=== PATIENT | male | born 1945 | race Caucasian/White ===

== ENCOUNTER 2021-05-20 13:25 | Outpatient (CLI) | payer MEDICARE, BC, SELFPAY ==
--- NOTE | 2021-05-20 11:15 | DI.RAD_ITS ---
Exam(s) XR KNEE RT 3V AP,LAT,KVNG EXAM: XR KNEE RT 3V AP,LAT,KVNG CLINICAL HISTORY: right knee pain. TECHNIQUE: 2D digital imaging was performed. COMPARISON: No exams were available for comparison FINDINGS: No evidence of acute fracture but there does appear to be a joint effusion. There is [id number] narrowing of the medial compartment evident on the weight-bearing view. Also m arginal osteophytes. Moderate degenerative changes are noted in the other 2 compartments. Vascular calcification also noted. IMPRESSION: Degenerative changes, most prominent in the medial compartment. Joint effusion DATA REPOSITORY: RADIATION DOSE DELIVERED:
== END 2021-05-20 13:26 | disposition home or self-care (01) ==
LOC: DIORS 13:25
PROVIDERS: PCP Internal Medicine; Referring Provider Internal Medicine; Visit Provider Student in an Organized Health Care Education/Training Program
DX: M25.561 Pain in right knee (principal); M25.461 Effusion, right knee; M17.11 Unilateral primary osteoarthritis, right knee
CPT/HCPCS: 73562; 99202

== ENCOUNTER 2023-03-23 12:06 | Outpatient (CLI) | payer MEDICARE, BC, SELFPAY ==
--- NOTE | 2023-03-23 12:02 | DI.RAD_ITS ---
Exam(s) XR STANDING ALIGNMENT EXAM: XR STANDING ALIGNMENT CLINICAL HISTORY: eval R knee alignment, pre TKA. TECHNIQUE: 2D digital imaging was performed. Four images were obtained. COMPARISON: CR XR KNEE RT 3V AP,LAT,KVNG from 05/20/2021 FINDINGS: BONES: There are marked degenerative changes seen in the left hip and mild degenerative changes in th e right hip. Moderate degenerative changes are seen in the right knee characterized by joint space n arrowing and osteophytes particularly in the medial femoral tibial joint space. There are mild degen erative changes in the left knee particularly in the medial femoral tibial joint. The ankles are wel l maintained.There is no significant leg length discrepancy. SOFT TISSUE: Atherosclerosis. IMPRESSION: Osteoarthritis of the knees and hips as described above. DATA REPOSITORY: RADIATION DOSE DELIVERED:
== END 2023-03-23 12:07 | disposition home or self-care (01) ==
LOC: DIORS 12:07
PROVIDERS: Visit Provider Student in an Organized Health Care Education/Training Program
DX: M17.11 Unilateral primary osteoarthritis, right knee (principal); Z01.818 Encounter for other preprocedural examination
CPT/HCPCS: 77073

== ENCOUNTER 2023-04-01 01:25 | Outpatient (CLI) | payer MEDICARE, BC, SELFPAY ==
[2023-04-01 10:22] LABS: HCT 44.3 % (40.0-50.0); HGB 14.9 g/dL (13.5-17.5); MCH 30.4 pg (27.0-33.0); MCHC 33.6 % (32.0-36.0); MCV 90 fL (80-95); MPV 10.7 fL (8.0-11.0); Platelet Count 155 10^3/uL (130-400); RDW-SD 39.6 fL; WBC 6.67 10^3/uL (4.4-10.8)
[2023-04-01 10:43] LABS: Anion Gap 5.1 mmol/L (3-11); BUN 28 mg/dL (7-18); CO2 28.9 mmol/L (21.0-32.0); CREATININE 1.2 mg/dL (0.70-1.30); Calcium 9.4 mg/dL (8.5-10.1); Chloride 103 mmol/L (98-107); Glucose 103 mg/dL (74-106); Potassium 4.5 mmol/L (3.5-5.1); Sodium 137 mmol/L (136-145)
== END 2023-04-01 01:26 | disposition home or self-care (01) ==
LOC: LBO 01:25
PROVIDERS: Visit Provider Student in an Organized Health Care Education/Training Program
DX: M25.561 Pain in right knee (principal); M17.11 Unilateral primary osteoarthritis, right knee; Z01.818 Encounter for other preprocedural examination; Z01.812 Encounter for preprocedural laboratory examination
CPT/HCPCS: 36415; 80048; 85027

== ENCOUNTER 2023-04-14 07:07 | Day surgery (SDC) | payer MEDICARE, BC, SELFPAY ==
[2023-04-14] VITALS (11 sets, daily range): BP systolic 101–176; BP diastolic 66–94; PULSE 43–83; RESP 9–16; TEMP 36.3–36.6; O2SAT 96–99; BMI 25.5
[2023-04-14] MEDS: Lactated Ringers 1,000 ML 80 ML IV (07:55)
[2023-04-14] MEDS: Gabapentin 300 MG CAP PO (07:56)
[2023-04-14] MEDS: Acetaminophen 500 MG TAB 1000 MG PO (07:56)
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
--- NOTE | 2023-04-14 08:49 | PDOC.DSDIS_ITS ---
Date of service: 04/14/23 Time of Service: 10:14 Discharge Plan Disposition Patient Disposition: Home Condition: Good Discharge Details Reason For Visit: Right knee DJD Attending Provider: Steven Parker Primary Care Provider: [facility] Home Meds and New Rx's Prescriptions: New acetaminophen 500 mg tablet 1,000 mg PO Q8H PRN Qty: 90 0RF Rx Instructions: Take two tablets up to every 8 hours as needed for pain pantoprazole 40 mg tablet,delayed release (DR/EC) 40 mg PO DAILY Qty: 14 0RF dexamethasone 4 mg tablet 4 mg PO DAILY Qty: 2 0RF Rx Instructions: Take one tablet once daily for two days docusate sodium [Colace] 100 mg capsule 100 mg PO BID Qty: 30 0RF gabapentin 300 mg capsule 300 mg PO QHS Qty: 14 0RF Rx Instructions: Take one tablet at bedtime oxycodone 5 mg tablet 5 mg PO Q4H PRNQty: 18 0RF Rx Instructions: Take one tablet up to every 4 hours as needed for severe postoperative pain meloxicam 15 mg tablet 15 mg PO DAILY Qty: 60 1RF Rx Instructions: Take one tablet daily for pain and inflammation Continued dofetilide 125 mcg capsule 500 mcg PO Q12H apixaban 5 mg tablet 5 mg PO BID lisinopril 5 MG tablet 5 mg PO DAILY metoprolol succinate 25 mg tablet extended release 24 hr 25 mg PO DAILY rosuvastatin [Crestor] 5 mg tablet 5 mg PO DAILY tamsulosin [Flomax] 0.4 mg capsule 0.8 mg PO DAILY Discharge Instructions Additional Instructions: Total Knee Discharge Instructions Activity: The most important activity is to walk and to work on gentle motion (both flexion and extension). You should try to take short walks a few times a day. It is important that when resting you work on keeping the knee straight. Avoid putting a pillow behind the knee as this will encourage flexion. Work on range of motion exercises as provided by Physical Therapy. - Start outpatient physical therapy within 2 weeks. - You should wear the NIKOS hose on both legs for 2 weeks. You may remove these at night. You may also use any compression sock in place of the NIKOS hose. - Utilize [employer] to review exercises, see videos on exercises and obtain basic information pertaining to your surgery and your recovery. Dressing: Remove the Josr wrap by 2 days after your surgery and put on the NIKOS stocking given to you from the hospital. Keep the surgical dressing (underneath the JOSR wrap) in place for at least one week. After the first week it may be removed and replaced with light gauze and tape or nothing. The wound and dressing may get wet after 3 days but avoid soaking the dressing or otherwise it will need to be changed. Many people prefer covering the dressing with cling wrap (saran wrap) to minimize it from getting soaked. If it gets wet, just pat dry. If it starts to peel off then it will need to be changed. Medications: - You should take Tylenol and anti-inflammatory Meloxicam as your primary pain control medications. If the Meloxicam is too expensive or not covered, please call the office for another alternative (Naproxen/Aleve) - You have been prescribed a stronger pain medication Oxycodone for breakthrough pain, take as needed as prescribed. - You have also been prescribed a stomach acid reduction agent Pantoprozole to help reduce stomach acid and reflux. - You have been prescribed Gabapentin to take at night for restlessness and nerve pain. - You will resume your baseline anticoagulation of Apixaban starting tomorrow. - You have also been prescribed Decadron to take to control post-operative nausea and pain. You will start this tomorrow. - If you have constipation you should take Colace (which has been prescribed) or Miralax (which is available [id number]). It takes most people 3-4 days to have a bowel movement. Follow-up: 2 weeks If you have any acute concerns or questions, please do not hesitate to contact the office at [phone]. You may contact Dr. Parker with any questions after hours through the hospital at [phone] or on his cell phone at [phone]. Referrals: Steven Parker MD [ [facility] STAFF PHYSICIAN] - Equipment/Supplies: Walker Activity:: Elevate Remove Dressings/Wound Care:: Do Not Remove Shower/Bathe:: 72 hours and Cover Diet:: As Tolerated Discharge Orders Discharge Orders: Discharge Order (Routine); Ordered 04/14/23 Ordered By: Brandi Mcmahan DS: Diagnosis Discharge Diagnosis (1) Osteoarthritis of right knee: Status: Chronic
[2023-04-14] MEDS: ceFAZolin 2 GM/50 ML BAG IVPB (09:11)
--- NOTE | 2023-04-14 11:56 | W.ANESNERVE ---
Nerve Block Single Injection Procedure Date and Time Date Performed: 04/14/23 Procedure Start: 07:50 Location Where Procedure Performed Procedure Location: Day Surgery Unit Reason Performed: Postoperative Analgesia Requesting Provider: Steven Parker Timeout Performed Timeout Performed: Yes Monitoring Used ECG, Blood Pressure, SpO2 and See EMR for corresponding vital signs Sterility Sterility: Hand Hygiene, Surgical Cap, Surgical Mask, Sterile Gloves and Chlorhexidine Sedation Given During Procedure Sedation Given (Indicate Dose Given): No Sedation given Patient Mental Status Patient Mental Status: Awake Nerve Block 1st Nerve Block: Laterality: Right Block Type: Adductor Canal Ultrasound Image Saved?: Yes Needle / Catheter Used: 100mm SonoPlex II Local Anesthetic Bolus (Indicate Dose Given): Lidocaine used for local infiltration of skin, Injected in 3-5ml increments after negative blood aspiration and Bupivacaine 0.25% Dose:: 15 ml Additives (Indicate Dose Given): None Ultrasound: Sterile probe cover and gel used Nerve Stimulator: Not Used Paresthesia: None Procedure Tolerated: No Complications Procedure Outcome: Successful Performed By: Lanie Tinoco
--- NOTE | 2023-04-14 13:20 | W.ANESPOSTOP ---
Postoperative Evaluation Date, Time and Location Date Performed: 04/14/23 Time Performed: 13:20 Patient Location: Day Surgery Unit Vital Signs Most Recent Imported Vital Signs: Most Recent Vital Signs Temp Pulse Resp BP Pulse Ox 36.5 C 43 L 10 L 116/94 H 99 04/14/23 11:31 04/14/23 11:31 04/14/23 11:31 04/14/23 11:31 04/14/23 11:31 Pain Score Most Recent Pain Score: Most Recent Pain Score Pain Level 0 04/14/23 11:31 Assessment Mental Status: Awake (Alert & Oriented to Patient Baseline) Airway and Respiratory Function: Patent airway with normal (patient baseline) respiratory exam Cardiovascular Function: Hemodynamically Stable Hydration Status: Adequately Hydrated Nausea & Vomiting: No Nausea or Vomiting Pain: Pt. Denies Any Pain Peripheral Nerve Block: Regional nerve block not resolved at time of post operative discharge
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
--- NOTE | 2023-04-14 14:22 | W.PM.OP ---
Date of service: 04/14/23 Time of Service: 09:20 Operative Note Operative Note DATE OF PROCEDURE: 04/14/23 PRE-OP DIAGNOSIS: Right Knee Osteoarthritis POST-OP DIAGNOSIS: same PROCEDURE: Right Total Knee Replacement SURGEON: Steven Parker MATERIALS HANDLING COORDINATOR: Brandi Mcmahan ANESTHESIA TYPE: Spinal Refer to Anesthesia Record ESTIMATED BLOOD LOSS: 150 PATHOLOGY: none sent TOURNIQUET TIME: 0 COMPLICATIONS: None Patient was transported to: PACU Patient's condition: stable Implants: 1. Depuy Attune Cementless Cruciate Retaining Femoral Component, Size 8 2. Depuy Attune Cementless Fixed Bearing Tibial Component, Size 7 3. Depuy Attune 8x8 CR/FB Poly 4. Depuy Attune Patellar Component, Size 38 Indications: I have seen Christopher in clinic for symptoms of knee arthritis, confirmed with radiographic findings. He has exhausted nonoperative methods and was having significant limitations in daily function and desired better function and less pain. I discussed the technical details of a knee replacement. I explained the risks of the procedure to include, but not limited to, bleeding, infection, pain, stiffness, fracture, damage to nerves and vessels, damage to muscles and tendons, loosening, need for repeat procedure, blood clot and cardiopulmonary demise. Despite these risks, Christopher elected to proceed. Findings: There was significant signs of arthritis throughout the knee. Procedure Description: Christopher was greeted in the preoperative holding area where the correct side was identified and marked. The consent was reviewed with the patient and signed. The history and physical was updated. All questions were answered. Preoperative medications were administered: Acetaminophen 1000mg, Celebrex 400mg, and Gabapentin 300mg. An adductor canal block was then administered by the anesthesia team in the [facility]. Christopher was taken back to the operating room. A spinal anesthestic was then administered. The patient was placed into the supine position on the operating room table. A nonsterile tourniquet was placed high onto the leg but only used for cementing. Posts were placed for positioning during the procedure. All bony prominences were well padded. Prophylactic antibiotics in the form of Cefazolin were administered. 1g of Tranxemic Acid was given intravenously within 30 minutes of incision. The right leg was then prepped with Chloraprep and draped in a standard fashion with impervious stockinette. A second prep with Chloraprep was performed prior to application of Iodine impregnated skin protection. A timeout to confirm correct identity, side and site, procedure, allergies, anesthesia, and medical concerns was performed. With the knee in some flexion, a midline incision was made overlying the knee. Full thickness skin flaps were raised once the extensor mechanism was encountered. These were raised medially and laterally. Any bleeding was controlled with electrocautery. Once the extensor mechanism was fully exposed, a medial parapatellar arthrotomy was performed in a flexed position. All bleeding from the arthrotomy and the geniculate arteries was coagulated. A medial subperiosteal peel was performed with electrocautery to the midcoronal plane. Due to the significant varus deformity the entire medial tibial plateau was exposed. The fat pad was removed while keeping the patellar tendon protected. The anterior distal femur synovium was removed for later visualization. The ACL and PCL were resected and the anterior horn of the lateral meniscus was transected. The knee was then flexed with the patella everted. Large osteophytes from the tibia were removed. Large osteophytes from the femur were removed. Using a step drill, and based on preoperative templating, the femoral canal was entered. This was done with a step drill without any difficulty. The intramedullary distal femoral cut guide was inserted, set to a 6 degree valgus cut and 9mm cut thickness. The distal femoral cut guide was then held in position and pinned. With the soft tissues protected, the distal cut was performed. This was passed over a few times to ensure a planar cut. I then turned attention to the tibia. The extramedullary guide was placed onto the leg. The distal aspect was slid medial to adjust for position of center of ankle and stay in line with shaft of the tibia. Approximately 5 degrees of posterior slope was kept in the proximal cutting guide. The center of the guide was aligned with the PCL. The stylus was used to assess cut thickness. The medial side, most involved side, was set for a 4mm cut. This was then held in position and pinned into place with 2 additional pins and a cross pin for stability. The medial and lateral collateral ligaments were protected and the cut was performed. With this completed, it was assessed and noted to be of appropriate dimensions. The guide was removed. A spacer block was inserted and the knee was brought into extension. The 6mm spacer block provided full extension, without hyperextension and with stability of both the medial and lateral collateral ligaments was assessed. The pins from the femur and the tibia were then removed. The distal femur was then sized. The anterior stylus was placed onto the lateral ridge of the anterior femur. This indicated a size 8 femur. The external rotation of the guide was adjusted to 3 degrees to match the epicondylar axis, perpendicular to Parag?s line. The 4-in-1 cutting guide was the placed. The posterior medial femur cut was evaluated and appeared of good thickness. The spacer block was inserted underneath the cutting guide and stability was confirmed in 90 degrees of flexion. An renate wing was used to confirm appropriate position of the anterior cut to avoid notching. This cutting guide was ensured to be flush on the cut surface and then pinned into place with headed pins. While protecting the soft tissues, quad tendon, and collateral ligaments, the anterior and posterior cuts were performed with a saw. The central two pins were removed and the posterior and anterior chamfers were cut next. The notch-cutting guide was placed. This was pinned to lateralize the femoral component as much as possible while keeping it flush on the cut surface. This was then pinned into position. A reciprocating saw was used to make the notch cut. A rasp smoothed the cut surfaces. The medial and lateral menisci were removed. A trial femoral component was then inserted, impacted down to the cut surfaces, and the lug holes were drilled. A provisional trial tibial component was placed and the knee was brought through range of motion. There was noted to be excellent extension and flexion. There was no significant instability. The patella was tracking without thumbs. A size 8mm polyethylene component provided the best range of motion and stability with less than 2mm gapping with medial and lateral stress and full extension without significant hyperextension. The tibial cut surface was fully exposed. The tibia was then sized as a 7. The tibia had been previously marked during trialing to correspond to the center of the tibial component to help with rotation. The trial was aligned to this angelo, approximately rotated to the medial 1/3rd of the tibial tubercle. The trial was pinned into place. The tibia was prepared with a reamer and a keel punch and lug holes. The knee was then brought into extension and the patella was measured as 25mm. Using the patellar clamp and cut guide, this was resected to a flat surface with at least 13mm of thickness remaining. The size 38 patella fit the best. This was oriented and then clamped into position. The lugs were drilled. The trial components were removed. The final components were opened on the back table. The periosteal and capsular tissues, especially posteriorly, around the knee were then systematically injected with a periarticular cocktail consisting of 246mg of Ropivacaine, 0.5mg of Epinephrine, 0.08mg of Clonidine, and 30mg of Ketorolac, diluted to 100cc. On the back table, with the implants opened, the cement was mixed. One batch of high viscosity cement was prepared with vacuum assistance. After the cement was ready a small amount was placed on the cut surface of the patella and the patellar button was clamped into position and held. While the cement was hardening, the cementless knee components were placed. Starting with the tibial component, the tibia was subluxed anteriorly and the lug holes of the component were lined up. The tibia was then impacted with an impactor and mallet until the tibial component was in contact with the tibia. The final polyethylene component was inserted. Then, the femoral component was inserted. The lug holes were aligned and the component was impacted into position. The knee was irrigated with Irrisept Chlorhexadine solution. This was allowed to sit in the knee for 3 minutes and then it was irrigated out with saline. After the cement had finally cured, approximately 15min, the clamp was removed from the patella and the knee was taken through range of motion. The patella was tracking with a no-thumbs technique. The capsule was then reapproximated with a No. 1 Vicryl at multiple locations. The capsule was finally closed with a No. 2 Stratafix, barbed suture. The second dosing of 1g TXA was started. Deep tissues were then reapproximated with 0 Vicryl and 2-0 Vicryl. The skin was closed with a running 3-0 Monocryl in a subcuticular fashion. This was reinforced with skin glue. A Mepilex silver dressing was applied along with a [id number] JUVENCIO wrap. A CryoCuff was applied. Christopher was transferred to the hospital bed without difficulty an suffering no apparent complication. Christopher has a good prognosis. Physical therapy will start today and without restrictions, weight-bearing as tolerated. His home dose of Eliquis 5mg BID will be used for DVT prophylaxis.
== END 2023-04-14 14:28 | disposition home or self-care (01) ==
PROVIDERS: Visit Provider Student in an Organized Health Care Education/Training Program
PROC: (CPT 27447; principal; 2023-04-14 09:30)
DX: M17.11 Unilateral primary osteoarthritis, right knee (principal); I10 Essential (primary) hypertension; E78.5 Hyperlipidemia, unspecified; I48.91 Unspecified atrial fibrillation; I48.92 Unspecified atrial flutter; Z79.01 Long term (current) use of anticoagulants
CPT/HCPCS: 27447; 76942; 97161; C1776; J0665; J0690; J1100; J1596; J2001; J2371; J2405; J2704

== ENCOUNTER 2023-04-27 15:47 | Outpatient (CLI) | payer MEDICARE, BC, SELFPAY ==
--- NOTE | 2023-04-27 11:00 | DI.RAD_ITS ---
Exam(s) XR KNEE RT 1V XR STANDING ALIGNMENT EXAM: XR STANDING ALIGNMENT and XR knee RT 1 V CLINICAL HISTORY: 1ST POST OP R TKA. TECHNIQUE: 2D digital imaging was performed. Four images were obtained. COMPARISON: CR XR KNEE RT 3V AP,LAT,KVNG from 05/20/2021 CR XR STANDING ALIGNMENT from 03/23/2023 FINDINGS: BONES: Marked narrowing of the superior joint space of the a left hip with osteophyte seen in the lef t femoral head. The patient now has a right total knee replacement. The orthopedic hardware appears in good position. No suspicious lucencies are seen in or about the orthopedic hardware. There is m oderate narrowing of the medial femoral tibial joint of the left knee. The ankles are well maintaine d.There is no significant leg length discrepancy. SOFT TISSUE: Vascular calcifications are present. IMPRESSION: 1. Right total knee replacement. 2. 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 DATA REPOSITORY: RADIATION DOSE DELIVERED:
== END 2023-04-27 15:48 | disposition home or self-care (01) ==
LOC: DIORS 15:47
PROVIDERS: Visit Provider Student in an Organized Health Care Education/Training Program
DX: Z96.651 Presence of right artificial knee joint (principal); Z47.1 Aftercare following joint replacement surgery
CPT/HCPCS: 73560; 77073

== ENCOUNTER → 2023-05-25 10:23 | Outpatient (BNVA) | payer MEDICARE, BC, SELFPAY | PROVIDERS: Visit Provider Student in an Organized Health Care Education/Training Program | DX: Z47.1 Aftercare following joint replacement surgery (principal); Z96.651 Presence of right artificial knee joint ==

== ENCOUNTER → 2023-07-06 10:21 | Outpatient (BNVA) | payer MEDICARE, BC, SELFPAY | PROVIDERS: Visit Provider Student in an Organized Health Care Education/Training Program | DX: Z47.1 Aftercare following joint replacement surgery (principal); Z96.651 Presence of right artificial knee joint ==

== ENCOUNTER 2024-04-18 11:23 | Outpatient (CLI) | payer MEDICARE, BC, SELFPAY ==
--- NOTE | 2024-04-18 09:45 | DI.RAD_ITS ---
Exam(s) XR KNEE RT 2V AP,LAT EXAM: XR KNEE RT 2V AP,LAT CLINICAL HISTORY: ANNUAL F/U R TKA. TECHNIQUE: 2D digital imaging was performed. Two images were obtained. AP and lateral views were ob tained. COMPARISON: CR XR KNEE RT 1V from 04/27/2023 CR XR STANDING ALIGNMENT from 04/27/2023 FINDINGS: BONES: There are stable post operative changes of a right total knee arthroplasty present. No fractu re or dislocation. JOINTS: The orthopedic hardware is in good position. No evidence of hardware loosening. SOFT TISSUE: Normal. IMPRESSION: Stable right total knee arthroplasty. DATA REPOSITORY: RADIATION DOSE DELIVERED:
== END 2024-04-18 11:24 | disposition home or self-care (01) ==
LOC: DIORS 11:24
PROVIDERS: PCP Physician Assistant; Visit Provider Physician Assistant
DX: Z47.1 Aftercare following joint replacement surgery (principal); Z96.651 Presence of right artificial knee joint
CPT/HCPCS: 99213; 73560